=== PATIENT | male | born 2005 | race Caucasian/White ===

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

== ENCOUNTER → 2025-04-06 | Outpatient (REF) | payer BC ==
[2025-04-06 16:27] LABS: GC DNA AMPLIFICATION NEGATIVE (NEGATIVE)
== END ==
LOC: M LAB REF 13:13
DX: Z00.00 Encounter for general adult medical examination without abnormal findings (principal)